=== PATIENT | female | born 1975 | race Hispanic/Latino ===

== ENCOUNTER 2024-08-31 12:51 | Emergency (ER) | payer SELFPAY ==
[~2024-08-31] VITALS: Ht 152.4 cm; Wt 68.0 kg
--- NOTE | 2024-08-31 12:58 | ERN ---
ED Note History of Present Illness Stated Complaint: ABDOMINAL PAIN Chief Complaint: Abdominal Pain Time Seen by MD: 12:53 Dictation: PATIENT IS A 49-YEAR-OLD FEMALE COMING IN TODAY WITH COMPLAINTS OF INTERMITTENT RIGHT UPPER QUADRANT PAIN THAT IS COLICKY WITH NAUSEA ONSET MORE THAN ONE MONTH PRIOR TO ARRIVAL. NO FEVER NO CHILLS. SHE HAS PAPERWORK FROM [facility] FROM A MONTH AGO WITH THE SAME COMPLAINT WAS DIAGNOSED WITH BILIARY COLIC AND REFERRED TO DR. PACHECO, DID NOT FOLLOW UP BECAUSE OF LACK OF INSURANCE. Allergies: Coded Allergies: No Known Allergies (Unverified Allergy, Unknown, 08/31/24) Past Medical History Past Medical History: Diabetes-Type II, High Cholesterol, Hypertension Surgical History: Other History: Not Applicable RN Note Reviewed/Agreed w/PFSH: Yes Review of System Dictation CONSTITUTIONAL: NEGATIVE EXCEPT FOR HPI HEAD/FACE: NEGATIVE EXCEPT FOR HPI EENT: NEGATIVE EXCEPT FOR HPI RESPIRATORY: NEGATIVE EXCEPT FOR HPI GASTROINTESTINAL/ABDOMINAL: NEGATIVE EXCEPT FOR HPI RIGHT UPPER QUADRANT PAIN WITH NAUSEA GENITOURINARY: NEGATIVE EXCEPT FOR HPI MUSCULOSKELETAL: NEGATIVE EXCEPT FOR HPI INTEGUMENTARY: NEGATIVE EXCEPT FOR HPI NEUROLOGICAL/PSYCH: NEGATIVE EXCEPT FOR HPI HEMATOLOGIC/LYMPHATIC: NEGATIVE EXCEPT FOR HPI ALL SYSTEMS NEGATIVE, EXCEPT NOTED ABOVE. 13 POINT REVIEW OF SYSTEMS ASSESSED AND ALL NEGATIVE EXCEPT FOR ABOVE. Initial Vital Sign VS Vital Signs Date Time Temp Pulse Resp B/P (MAP) Pulse Ox O2 Delivery O2 Flow Rate FiO2 08/31/24 12:53 98.8 105 20 109/76 99 Physical Exam Dictation VITAL SIGNS REVIEWED GENERAL APPEARANCE: ALERT, ORIENTED X 3, MODERATE ACUTE DISTRESS, WELL DEVELOPE D, NOURISHED. HEAD AND FACE: NON-TRAUMATIC. EYES: PERRL, PINK CONJUNCTIVAS, EYELID NO TRAUMA, ANTERIOR CHAMBER WITH ARCUS SENILIS. EARS: PINNAS INTACT AND NO SIGNS OF TRAUMA OR ERYTHEMA EAR CANALS CLEAR AND NO DISCHARGE TM NO ERYTHEMA NOSE: NO DISCHARGE, NO BLEEDING. OROPHARYNX: MOUTH NORMAL, TONGUE PINK, PHARYNX CLEAR,NO ERYTHEMA, TONSILS NO EXUDATES, NO ABSCESSES NOTED, MUCOUS MEMBRANE MOIST NECK: SUPPLE, NON-TENDER, NO THYROMEGALY, NO MASSES, NO JVD, NO BRUITS BREAST:DEFERRED CHEST:NO TENDERNESS, NO CREPITUS, NO PARADOXICAL MOVEMENT, NO RETRACTIONS LUNGS:CLEAR, WELL-VENTILATED, SYMMETRIC, NO RALES, NO WHEEZING, NO RHONCHI, NO STRIDOR, GOOD BREATH SOUNDS BILATERALLY HEART: REGULAR RATE, REGULAR RHYTHM, NO MURMUR, NO GALLOPS VASCULAR: NO PERIPHERAL EDEMA, ABDOMEN: SOFT, POSITIVE BOWEL SOUNDS, NONDISTENDED, NO GUARDING, RIGHT UPPER QUADRANT PAIN, NO REBOUND, NO MASSES NO HEPATOMEGALY, NO SPLENOMEGALY, NO VO'S SIGN, NO HERNIAS. RECTAL: DEFERRED GENITAL: DEFERRED NEUROLOGICAL: NORMAL SPEECH, MOTOR FUNCTION INTACT, SENSORY FUNCTION INTACT MUSCULOSKELETAL: NECK NONTENDER, FULL RANGE OF MOTION, BACK NONTENDER, FULL RANGE OF MOTION, EXTREMITIES: NONTENDER, FULL RANGE OF MOTION SKIN: COLOR PINK, DRY, NO TURGOR, NO RASH, NO LACERATIONS, NO ABRASIONS, NO CONTUSIONS. LYMPHATIC: DEFERRED Results (Laboratory/Radiology) Laboratory/Radiology Laboratory Tests Test 08/31/24 13:05 08/31/24 13:27 Urine Color YELLOW (YELLOW) Urine Appearance CLEAR (CLEAR) Urine pH 6.0 (5.0-8.0) Urine Specific [place] 1.018 (1.001-1.031) Urine Protein NEGATIVE mg/dL (NEGATIVE) Urine Glucose (UA) 50 mg/dL (NEGATIVE) H Urine Ketones NEGATIVE mg/dL (NEGATIVE) Urine Occult Blood NEGATIVE (NEGATIVE) Urine Nitrate NEGATIVE (NEGATIVE) Urine Bilirubin NEGATIVE mg/dL (NEGATIVE) Urine Urobilinogen 0.2 mg/dL (0.2-1.0) Urine Leukocyte Esterase 75 Michael/uL (NEGATIVE) H Urine RBC 0-1 /HPF (0-1) Urine WBC 0-1 /HPF (0-1) Urine Bacteria None /HPF (None Seen) White Blood Count 6.2 K/uL (4.8-10.8) Red Blood Count 5.12 MIL/uL (4.00-5.50) Hemoglobin 15.4 g/dL (12.0-16.0) Hematocrit 43.7 % (36-48) Mean Corpuscular Volume 85.4 fL (79-99) Mean Corpuscular Hemoglobin 30.1 pg (27.0-33.0) Mean Corpuscular Hemoglobin Concent 35.2 g/dL (32.0-36.0) Red Cell Distribution Width 11.8 % (11.0-15.5) Platelet Count 292 K/uL (130-400) Mean Platelet Volume 11.1 fL (7.5-10.5) H Immature Granulocyte % (Auto) 0.2 % (0-1) Neutrophils (%) (Auto) 56.4 % (40.0-77.0) Lymphocytes (%) (Auto) 35.2 % (21.0-51.0) Monocytes (%) (Auto) 6.1 % (3.0-13.0) Eosinophils (%) (Auto) 1.3 % (0.0-8.0) Basophils (%) (Auto) 0.8 % (0.0-5.0) Neutrophils # (Auto) 3.5 K/uL (1.8-7.7) Lymphocytes # (Auto) 2.2 K/uL (1.0-4.8) Monocytes # (Auto) 0.4 K/uL (0.1-1.0) Eosinophils # (Auto) 0.08 K/uL (0.00-0.70) Basophils # (Auto) 0.05 K/uL (0.00-0.20) Absolute Immature Granulocyte (auto 0.01 K/uL (0-1) Nucleated Red Blood Cells 0.0 % (0.0-0.19) Sodium Level 133 mmol/L (136-145) L Potassium Level 4.4 mmol/L (3.5-5.1) Chloride Level 96 mmol/L (101-111) L Carbon Dioxide Level 32 mmol/L (21-32) Blood Urea Nitrogen 20 mg/dL (7-18) H Creatinine 0.7 mg/dL (0.5-1.0) Glomerular Filtration Rate Calc 105 mL/min (>90) Random Glucose 126 mg/dL (70-105) H Total Calcium 9.2 mg/dL (8.5-10.1) Lipase 25 U/L (16-77) 1420/RIGHT UPPER QUADRANT ULTRASOUNDS DEMONSTRATES SEVERAL STONES IN THE GALLBLADDER WITHOUT PERICHOLECYSTIC FLUID NO WALL THICKENING AND COMMON BILE DUCT IS NORMAL. SPOKE WITH THE HEEL ATTACHER WOOD NO ADDITIONAL FINDINGS Labs Reviewed?: Yes ED Course ED Course Orders Procedure Category Date Status Time Cbc With Differential LAB 08/31/24 Complete 12:56 Urinalysis Profile LAB 08/31/24 Complete 12:56 Us Abdominal Ruq\Ltd US 08/31/24 Taken 12:56 0.9%Nacl 1000ml (Ns PHA 08/31/24 Complete 1000ml) 13:00 Ketorolac PHA 08/31/24 Complete Tromethamine 30mg/Ml 13:00 Ondansetron 4mg Inj PHA 08/31/24 Complete (Zofran 4mg Inj) 13:00 Lipase LAB 08/31/24 Complete 12:56 Basic Metabolic Panel LAB 08/31/24 Complete 12:56 Culture Urine NICOLE 08/31/24 In Process 13:26 Current Medications Medications (Trade) Dose Ordered Sig/Sunday Route PRN Reason Start Time Stop Time Status Last Admin Dose Admin Ketorolac Tromethamine (toRADol) 30 mg ONCE ONCE IVP 08/31/24 13:00 08/31/24 13:01 DC 08/31/24 13:12 Ondansetron HCl (zoFRAN 4MG INJ) 4 mg ONCE ONCE IVP 08/31/24 13:00 08/31/24 13:01 DC 08/31/24 13:11 Sodium Chloride 1,000 ml @ 0 mls/hr ONCE ONCE IV 08/31/24 13:00 08/31/24 13:01 DC 08/31/24 13:12 Vital Signs Date Time Temp Pulse Resp B/P (MAP) Pulse Ox O2 Delivery O2 Flow Rate FiO2 08/31/24 12:53 98.8 105 20 109/76 99 1420/PAIN IS PAIN IS RELIEVED AFTER FLUIDS AND TORADOL. DISCHARGED HOME WITH KETOROLAC/ZOFRAN AND GIVEN THE NAME OF DR. SPIVEY DAY TO FOLLOW UP OUTPATIENT Medical Decision Making MDM MEDICAL DECISION-MAKING WAS BASED ON ABDOMINAL LABS AND ULTRASOUND RIGHT UPPER QUADRANT. LABS UNREMARKABLE MILD HYPONATREMIA ULTRASOUND DEMONSTRATES GALLBLADDER STONES WITHOUT PERICHOLECYSTIC FLUID NO GALLBLADDER WALL THICKENING AND COMMON BILE DUCT IS NORMAL. PATIENT GIVEN THE NAME OF DX & DISP Disposition: Discharge Departure Impression: Primary Impression: Cholelithiasis Additional Impressions: Biliary colic, Dehydration, Nausea Condition: Stable Scripts Ondansetron (Ondansetron Odt) 4 Mg Tab.rapdis 4 MG PO Q6HPRN PRN for nausea, #16 TAB 0 Refills Prov: PRUDENCE ANSARI [employer]UBE WINDER 08/31/24 Ketorolac Tromethamine (Ketorolac Tromethamine) 10 Mg Tablet 1 TAB PO Q6HPRN PRN for pain for 5 Days, #20 TAB 0 Refills Prov: PRUDENCE ANSARI NP 08/31/24 Additional Instructions: FOLLOW-UP WITH PRIMARY CARE PROVIDER IN 1 TO 2 DAYS. TAKE MEDICATIONS DIRECTED HERE IN THE EMERGENCY ROOM. OKAY TO CONTINUE HOME MEDICATIONS UNLESS OTHERWISE DISCUSSED DURING YOUR VISIT IN THE EMERGENCY ROOM TODAY. RETURN TO YOUR NEAREST EMERGENCY ROOM IF SYMPTOMS WORSEN OR IF THERE IS NO IMPROVEMENT. CALL 911 IF YOU NEED IMMEDIATE ASSISTANCE. TAKE TYLENOL OR MOTRIN OVER-THE-CO UNTER NEEDED AND IF NO CONTRAINDICATIONS ARE PRESENT. INCREASE ORAL HYDRATION. A WOUND CULTURE OR URINE CULTURE WAS ORDERED HERE IN THE EMERGENCY ROOM DEPARTMENT PLEASE FOLLOW-UP WITH PRIMARY CARE PROVIDER AND ADVISE THEM TO GET REPEAT PORTS FROM OUR FACILITY. IF YOU HAD ANY HOA WRAP/SPLINTS THAT WERE APPLIED HERE, PLEASE DO NOT REMOVE THEM UNTIL YOU SEE YOUR PRIMARY CARE OR SPECIALTY. FOLLOW A LOW-FAT DIET AND INCREASE WATER INTAKE. TAKE TORADOL NEEDED FOR PAIN. CALL SURGEON FOR AN APPOINTMENT IN THE NEXT 1-2 DAYS. Referrals: LEONARDO MORAN MD Time of Disposition: 14:22 I have reviewed the case, and I agree with, Diagnosis and Plan PRUDENCE ANSARI NP Aug 31, 2024 12:58
--- NOTE | 2024-08-31 13:04 | NUR ---
PT IS IN HWB[facility] NOW.
[2024-08-31] MEDS: ondanSETRON 4MG INJ IVP ONE (13:11)
[2024-08-31] MEDS: ketOROlac 30MG VIAL (30MG/ML) IVP ONE (13:12)
[2024-08-31] MEDS: 0.9%NACL 1000ML 1,000 ML IV ONE (13:12)
[2024-08-31 13:17] LABS: APPEARANCE,URINE CLEAR (CLEAR); BILIRUBIN,URINE NEGATIVE (NEGATIVE); COLOR,URINE YELLOW (YELLOW); GLUCOSE, URINE (UA) 50 mg/dL (NEGATIVE); KETONES,URINE NEGATIVE (NEGATIVE); LEUKOCYTE ESTERASE ,URINE 75 Leu/uL (NEGATIVE); NITRATE,URINE NEGATIVE (NEGATIVE); OCCULT BLOOD,URINE NEGATIVE (NEGATIVE); PROTEIN,URINE NEGATIVE (NEGATIVE); UROBILINOGEN,URINE 0.2 mg/dL (0.2-1.0)
[2024-08-31 13:25] LABS: ADD UA MICROSCOPIC YES
[2024-08-31 13:28] LABS: MUCUS,URINE RARE LPF (None Seen); RBC,URINE 0-1 /HPF (0-1); WBC,URINE 0-1 /HPF (0-1)
[2024-08-31 13:34] LABS: BASOPHILS # (AUTO) 0.05 K/uL (0.00-0.20); BASOPHILS % (AUTO) 0.8 % (0.0-5.0); EOSINOPHILS # (AUTO) 0.08 K/uL (0.00-0.70); EOSINOPHILS % (AUTO) 1.3 % (0.0-8.0); HEMATOCRIT 43.7 % (36-48); IMMATURE GRANULOCYTE ABSOLUTE 0.01 K/uL (0-1); LYMPHOCYTES # (AUTO) 2.2 K/uL (1.0-4.8); LYMPHOCYTES % (AUTO) 35.2 % (21.0-51.0); MEAN CORPUSCULAR HEMOGLOBIN 30.1 pg (27.0-33.0); MEAN CORPUSCULAR HGB CONC 35.2 g/dL (32.0-36.0); MEAN CORPUSCULAR VOLUME 85.4 fL (79-99); MONOCYTES # (AUTO) 0.4 K/uL (0.1-1.0); MONOCYTES % (AUTO) 6.1 % (3.0-13.0); NEUTROPHILS # (AUTO) 3.5 K/uL (1.8-7.7); NEUTROPHILS % (AUTO) 56.4 % (40.0-77.0); PLATELET COUNT (AUTO) 292 K/uL (130-400); RED BLOOD CELL COUNT(AUTO) 5.12 MIL/uL (4.00-5.50); RED CELL DISTRIBUTION WIDTH 11.8 % (11.0-15.5); WHITE BLOOD COUNT (AUTO) 6.2 K/uL (4.8-10.8)
[2024-08-31 13:47] LABS: CREATININE 0.7 mg/dL (0.5-1.0); POTASSIUM 4.4 mmol/L (3.5-5.1)
[2024-08-31] MEDS ORDERED: ONDA-243 PO (14:24)
[2024-08-31] MEDS ORDERED: KETO10TA2 PO (14:24)
--- NOTE | 2024-08-31 14:44 | HMCIMG ---
US ABDOMINAL RUQ\E\LTD HISTORY: Abdominal pain COMPARISON: None TECHNIQUE: Right upper quadrant abdominal ultrasound study was performed. FINDINGS: Liver measures 13.8 cm. Pancreas not well seen due to overlying bowel gas. Liver is echogenic consistent with liver parenchymal disease. Gallstones are seen in the gallbladder and gallbladder neck region. Common duct measures 4 mm. No evidence of gallbladder wall thickening is seen. Right kidney measures 9.2 x 4.5 x 3.7 the study is Limited ON bowel gas. cm. No hydronephrosis is seen of the right kidney. IMPRESSION: 1. Gallstones in the gallbladder neck region. No ductal dilatation is seen. 2. No hydronephrosis is seen.
[2024-08-31 14:50] VITALS: BP 99/70; PULSE 95; RESP 20; TEMP 98.8; O2SAT 96
== END 2024-08-31 14:50 | disposition home or self-care (01) ==
LOC: EDH 12:51
DX: K80.70 Calculus of gallbladder and bile duct without cholecystitis without obstruction (principal); E86.0 Dehydration; E11.9 Type 2 diabetes mellitus without complications; E78.00 Pure hypercholesterolemia, unspecified; I10 Essential (primary) hypertension; Z98.890 Other specified postprocedural states
CPT/HCPCS: 99285; 96374; 76705; 96361; 96375; 80048; 83690; 85025; 87086; 81001; 36415; J1885; J7030; J2405